=== PATIENT | female | born 1960 | race Caucasian/White ===

== ENCOUNTER 2019-09-20 16:26 | Emergency (ER) | payer MEDICARE ==
--- NOTE | 2019-09-20 16:50 | EDM.PDOC ---
ED HPI GENERAL MEDICAL PROBLEM - General Chief Complaint: Lower Extremity Injury/Pain Stated Complaint: HURT ANKLE RIGHT Time Seen by Provider: 09/20/19 16:40 Source of Information: Reports: Patient History Limitations: Reports: No Limitations - History of Present Illness INITIAL COMMENTS - FREE TEXT/NARRATIVE: pt presents to the ER after dismounting from her camper and twisting her ankle. pt states gross swelling and pain of right ankle she describes as "sharp, throbbing, achy". ROM is limited to pain, she denies numbness, tingling in right foot, hitting head. - Related Data Allergies Allergy/AdvReac Type Severity Reaction Status Date / Time amoxicillin Allergy Cannot Verified 09/20/19 16:47 Remember levofloxacin [From Levaquin] Allergy Cannot Verified 09/20/19 16:47 Remember morphine Allergy Cannot Verified 09/20/19 16:47 Remember Home Meds: Home Meds Acetaminophen [Tylenol] 325 mg PO Q6H PRN 09/20/19 [History] Albuterol [Ventolin HFA] 2 puff IH Q4H PRN 09/20/19 [History] Albuterol/Ipratropium [DuoNeb 3.0-0.5 MG/3 ML] 1 ampule IH Q4HR PRN 09/20/19 [History] Amitriptyline [Elavil] 25 mg PO BEDTIME 09/20/19 [History] DULoxetine [Cymbalta] 60 mg PO DAILY 09/20/19 [History] Fluticasone Propionate [Flonase] 2 spray NS DAILY 09/20/19 [History] Loratadine [Claritin] 10 mg PO DAILY 09/20/19 [History] Mometasone/Formoterol [Dulera 200-5 MCG] 2 puff INH BID 09/20/19 [History] Montelukast [Singulair] 10 mg PO DAILY 09/20/19 [History] Pregabalin [Lyrica] 75 mg PO BID 09/20/19 [History] Sertraline [Zoloft] 50 mg PO DAILY 09/20/19 [History] Review of Systems - Review of Systems Review Of Systems: Comprehensive ROS is negative, except as noted in HPI. ED EXAM, GENERAL - Physical Exam Exam: See Below Exam Limited By: No Limitations General Appearance: Alert, WD/WN, Mild Distress Head: Atraumatic, Normocephalic Respiratory/Chest: No Respiratory Distress, Lungs Clear, Normal Breath Sounds, No Accessory Muscle Use Cardiovascular: Normal Peripheral Pulses, Regular Rate, Rhythm, No Edema, No Murmur Peripheral Pulses: 2+: Radial (L), Radial (R), Posterior Tibial (L), Posterior Tibial (R), Dorsalis Pedis (L), Dorsalis Pedis (R) Extremities: Other (right ankle TTP on posterior aspect of lateral malleolus with swelling. pulses intact to extremity. pt has been unable to bear weight to right ankle since incident. ) Neurological: Alert, Oriented, CN II-XII Intact, Normal Cognition Psychiatric: Normal Affect, Normal Mood Skin Exam: Warm, Dry, Intact Course - Orders/Labs/Meds Orders: Active Orders 24 hr Category Date Time Status Ankle Min 3V Rt [CR] Stat Exams 09/20/19 16:43 Ordered - Radiology Interpretation Free Text/Narrative:: wet read of right ankle xray shows fracture with mild displacement of distal fibula. no other fracture or dislocation noted. Departure - Departure Time of Disposition: 17:45 Disposition: Home, Self-Care 01 Condition: Good Clinical Impression: Closed fracture of distal end of right fibula, Fall - Discharge Information *PRESCRIPTION DRUG MONITORING PROGRAM REVIEWED*: No *COPY OF PRESCRIPTION DRUG MONITORING REPORT IN PATIENT DEANDRE: No Instructions: Crutch Use, Adult, [id number], Ankle Fracture, [id number] Referrals: PCP,None [Primary Care Provider] - Forms: ED Department Discharge Additional Instructions: Keep applied walker boot in place at all times as instructed. Affected ankle should be elevated to help decrease swelling. Crutches used for walking, with minimal amount of weight to be placed on affected ankle. Take provided Vicodin as instructed: 1 tablet by mouth every 4 hours as needed for pain. May also use 650mg Tylenol every 6 hours for pain. Follow up with regular provider next week when you return home. Call with any questions. - Problem List & Annotations (1) Closed fracture of distal end of right fibula SNOMED Code(s): 010976178, 70850116256090868 Code(s): S82.831A - H FRACTURE OF UPPER AND LOWER END OF RIGHT FIBULA, INIT Status: Acute Current Visit: Yes Qualifiers: Encounter type: initial encounter Fracture morphology: other fracture Qualified Code(s): S82.831A - Other fracture of upper and lower end of right fibula, initial encounter for closed fracture (2) Fall SNOMED Code(s): 8918715, 245281296 Code(s): W19.XXXA - UNSPECIFIED FALL, INITIAL ENCOUNTER Status: Acute Current Visit: Yes Qualifiers: Encounter type: initial encounter Qualified Code(s): W19.XXXA - Unspecified fall, initial encounter - Problem List Review Problem List Initiated/Reviewed/Updated: Yes - My Orders Last 24 Hours: My Active Orders 09/20/19 16:43 Ankle Min 3V Rt [CR] Stat - Assessment/Plan Last 24 Hours: My Active Orders 09/20/19 16:43 Ankle Min 3V Rt [CR] Stat Assessment:: assessment: fall fracture of distal right fibula plan: toe touch weight bearing in walking boot crutches hydrocodone-apap 5/325 f/u appt in ortho clinic in [place] with Dr. Casey on August at 2pm. this pt was evaluated in the ED within the context of covid 19 pandemic. differentials considered were TFL avulsion, tib-fib fracture, dislocation. pt was provided send home prescription of 10 tab hydrocodone/apap 5/325 with RICE therapy and recommendations for tylenol max dose of 4000mg in 24hr period. crutch education also provided. pt was able to teach back all discharge instructions at time of discharge. she was released in the care of farhan.
[2019-09-20] MEDS ORDERED: Acetaminophen/HYDROcodone 325-5 MG Tab ONE (17:30)
--- NOTE | 2019-09-20 22:34 | CR ---
DATE OF SERVICE: 09/20/2019 CLINICAL DATA: right ankle swelling, deformity? RIGHT ANKLE: There is soft tissue swelling over the lateral malleolus. There is a nondisplaced oblique fracture through the distal fibula. No other acute abnormalities. IMPRESSION: Fracture distal fibula. [id number] [facility]
== END 2019-09-20 17:54 | disposition home or self-care (01) ==
LOC: LB.ED 16:26
DX: S82.831A Other fracture of upper and lower end of right fibula, initial encounter for closed fracture (principal); Z88.1 Allergy status to other antibiotic agents; Z88.5 Allergy status to narcotic agent; Z79.899 Other long term (current) drug therapy; X50.1XXA Overexertion from prolonged static or awkward postures, initial encounter
CPT/HCPCS: 73610; 99283; A9270